=== PATIENT | male | born 1975 | race Caucasian/White ===

== ENCOUNTER 2018-02-09 10:53 | Emergency (ER) | payer MEDICAID ==
[~2018-02-09] VITALS: Ht 170.2 cm; Wt 95.0 kg
[2018-02-09 11:01] VITALS: BP 140/100
[2018-02-09] MEDS ORDERED: BUPIVAcaine/PF 2.5 mg/ml (0.25%) 30ml vial IJ ONE (12:05)
[2018-02-09] MEDS ORDERED: BUPIVAcaine/PF 2.5mg/ml (0.25%) 10ml vial IJ ONE (12:10)
== END 2018-02-09 12:40 | disposition home or self-care (01) ==
LOC: ER 10:54
DX: G43.909 Migraine, unspecified, not intractable, without status migrainosus (principal); G89.29 Other chronic pain; Z88.6 Allergy status to analgesic agent
CPT/HCPCS: 20552; 99284; J3490

== ENCOUNTER 2018-06-11 10:28 | Emergency (ER) | payer MEDICAID ==
[~2018-06-11] VITALS: Ht 172.7 cm; Wt 90.9 kg
[2018-06-11 10:45] VITALS: BP 141/103
[2018-06-11] MEDS ORDERED: morphine 4 MG/ML inj SYRINge IM ONE (11:10)
[2018-06-11] MEDS ORDERED: ondansetron 4mg rapidly disintigrating tab PO ONE (11:10)
--- NOTE | 2018-06-11 11:28 | NUR ---
Prior to medication administration, patient stated able to get a ride home. Instructed not to drive due to administration of Morphine.
== END 2018-06-11 11:51 | disposition home or self-care (01) ==
LOC: ER 10:28
DX: M54.5 Low back pain (principal); G89.29 Other chronic pain; G43.909 Migraine, unspecified, not intractable, without status migrainosus; Z88.6 Allergy status to analgesic agent
CPT/HCPCS: 96372; 99283; J2270